=== PATIENT | male | born 1955 | race Caucasian/White ===

== ENCOUNTER → 2023-11-02 13:15 | Outpatient (REF) | payer MEDICARE, BC, SELFPAY | LOC: HWRAD 13:15 | PROVIDERS: ATTENDING PHYSICIAN Psychiatry & Neurology Neurology; FAMILY PHYSICIAN Internal Medicine Geriatric Medicine | DX: M54.50 Low back pain, unspecified (principal) | CPT/HCPCS: 72120 ==

== ENCOUNTER → 2024-09-25 10:44 | Outpatient (REF) | payer MEDICARE, SELFPAY | LOC: HWRAD 10:44 | PROVIDERS: ATTENDING PHYSICIAN Internal Medicine Geriatric Medicine | DX: Z00.00 Encounter for general adult medical examination without abnormal findings (principal); I10 Essential (primary) hypertension; E78.5 Hyperlipidemia, unspecified; E78.2 Mixed hyperlipidemia; R00.2 Palpitations; F41.1 Generalized anxiety disorder; M54.17 Radiculopathy, lumbosacral region; C43.8 Malignant melanoma of overlapping sites of skin; I63.81 Other cerebral infarction due to occlusion or stenosis of small artery; R09.89 Other specified symptoms and signs involving the circulatory and respiratory systems; R06.83 Snoring; Z13.89 Encounter for screening for other disorder; K21.9 Gastro-esophageal reflux disease without esophagitis; E29.1 Testicular hypofunction | CPT/HCPCS: 76770 ==

== ENCOUNTER → 2024-11-07 11:10 | Outpatient (REF) | payer MEDICARE, SELFPAY | LOC: HWRCS 11:10 | PROVIDERS: ATTENDING PHYSICIAN Nuclear Medicine Nuclear Cardiology; FAMILY PHYSICIAN Internal Medicine Geriatric Medicine | DX: R00.2 Palpitations (principal); I10 Essential (primary) hypertension; I49.3 Ventricular premature depolarization; I49.1 Atrial premature depolarization | CPT/HCPCS: 93306 ==